=== PATIENT | male | born 2000 | race Caucasian/White ===

== ENCOUNTER 2021-04-27 21:45 | Emergency (ER) | payer OTHER ==
[2021-04-27 21:54] VITALS: BP 128/77; PULSE 86; TEMP 98.1; BMI 21.7
== END 2021-04-27 22:52 | disposition home or self-care (01) ==
LOC: JERFT 21:45
DX: S50.811A Abrasion of right forearm, initial encounter (principal)
CPT/HCPCS: 99281-25